=== PATIENT | male | born 1970 | race Caucasian/White ===

== ENCOUNTER 2019-09-05 19:41 | Emergency (ER) | payer SELFPAY ==
[2019-09-05 20:08] LABS: BILIRUBIN,URINE NEGATIVE (NEGATIVE); GLUCOSE, URINE (UA) NEGATIVE (NEGATIVE); KETONES,URINE (UA) NEGATIVE (NEGATIVE); LEUKOCYTE ESTERASE, URINE NEGATIVE (NEGATIVE); NITRITE,URINE NEGATIVE (NEGATIVE); OCCULT BLOOD,URINE NEGATIVE (NEGATIVE); PH,URINE 8.5 PH (5.0-7.5); PROTEIN,URINE NEGATIVE (NEGATIVE); UROBILINOGEN,URINE 0.2 (NORMAL) E.U./dL (NORMAL)
[2019-09-05 20:17] LABS: CLARITY,URINE CLEAR (CLEAR)
[2019-09-05] MEDS ORDERED: SODIUM CHLORIDE 0.9% 1,000 ML IV ONE (20:25)
--- NOTE | 2019-09-05 20:31 | ED Physician Documentation ---
History of Present Illness - Stated complaint Stated Complaint: SOA,SORE THROAT,BODY ACHES - Chief complaint Chief Complaint: Abd Pain - History obtained from History obtained from: Patient - Additonal information Additional information: Patient comes emergency department complaining of a cough for the last 3 days. Patient states he feels mildly short of breath, also. Patient states he had a temperature of 103 at home, and took some TheraFlu. He does not have fever here. Patient denies body aches. He says he has a mild scratchy throat. No headache. No shaking chills. Patient denies nausea or vomiting. No diarrhea. No abdominal or chest pain. He states he was a smoker until about 10 years ago. He is not known to have COPD, and does not have asthma. He states one other person at home is sick with similar symptoms. He has not had any known exposure to influenza or coronavirus. No other complaints at this time. He states his cough is dry. Review of Systems Ten Systems: 10 systems reviewed and negative Constitutional: reports: Fever. denies: Chills, Myalgias, Fatigue Eyes: reports: Reviewed and negative Ears: reports: Reviewed and negative Nose: reports: Congestion Throat: reports: Sore throat (Scratchy only) Cardiac: reports: Reviewed and negative Respiratory: reports: Cough (Dry) GI: reports: Reviewed and negative : reports: Reviewed and negative Skin: reports: Reviewed and negative Musculoskeletal: reports: Reviewed and negative Neurologic: reports: Reviewed and negative Psychiatric: reports: Reviewed and negative Endocrine: reports: Reviewed and negative Immunocompromised: reports: Reviewed and negative PD PAST MEDICAL HISTORY - Past Medical History Past Medical History: No - Present Medications Home Medications: Ambulatory Orders Medication Instructions Recorded Confirmed No Known Home Medications 09/05/19 09/05/19 - Allergies Allergies/Adverse Reactions: Allergies Allergy/AdvReac Type Severity Reaction Status Date / Time Penicillins Allergy Unknown Verified 09/05/19 20:00 - Social History Does the pt smoke?: No Smoking Status: Never smoker Does the pt drink ETOH?: No Does the pt have substance abuse?: Yes Substance Use and Type: Marijuana - Immunizations Immunizations are current?: No PD ED PE NORMAL - Vitals Vital signs reviewed: Yes - General General: Alert and oriented X 3, No acute distress - HEENT HEENT: Atraumatic, PERRL, EOMI, Moist mucous membranes, Pharynx benign - Neck Neck: Supple, no meningeal sign - Cardiac Cardiac: No murmur, Other (Rate and rhythm are regular, but patient is tachycardic.) - Respiratory Respiratory: No respiratory distress, Clear bilaterally - Abdomen Abdomen: Soft, Non tender, Non distended - Derm Derm: Normal color, Warm and dry, No rash - Extremities Extremities: No deformity, Normal ROM s pain, No edema, No calf tenderness / cord - Neuro Neuro: Alert and oriented X 3, 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, No motor deficit, No sensory deficit, Normal speech, Other (Grossly intact) - Psych Psych: Normal mood, Normal affect Results - Vitals Vitals: Vital Signs - 24 hr 09/05/19 09/05/19 19:45 22:24 Temperature 37.8 C H 38.9 C H Heart Rate 110 H 118 H Respiratory 18 20 Rate Blood Pressure 122/90 H 104/74 O2 Saturation 98 96 Oxygen O2 Source Room air - Labs Labs: Laboratory Tests 09/05/19 09/05/19 19:20 21:15 Urine Color YELLOW Urine Clarity CLEAR Urine pH 8.5 H Ur Specific Anderson 1.020 Urine Protein NEGATIVE Urine Glucose (UA) NEGATIVE Urine Ketones NEGATIVE Urine Occult Blood NEGATIVE Urine Nitrite NEGATIVE Urine Bilirubin NEGATIVE Urine Urobilinogen 0.2 (NORMAL) Ur Leukocyte Esterase NEGATIVE Ur Microscopic Review NOT INDICATED Urine Culture Comments NOT INDICATED Influenza A (Rapid) POSITIVE H Influenza B (Rapid) Negative - Rads (name of study) chest x-ray Radiology: Final report received, EMP read indepedently, See rad report (mild atelectasis, otherwise negative) PD MEDICAL DECISION MAKING - ED course Complexity details: reviewed results, re-evaluated patient, considered differential, d/w patient ED course: Patient was worked up initially with influenza testing and chest x-ray. He was given a liter of 0.9 normal saline, After which he was found to be feeling somewhat better. Influenza test was positive for influenza A. Chest x-ray was negative. I discussed the results with the patient. We have discussed home management and symptoms, the expected course of illness, and the usual indications for return. Departure - Departure Disposition: 01 Home, Self Care Clinical Impression: Influenza Condition: Fair Instructions: ED Flu Comments: Your influenza test was positive for influenza A tonight. You will most likely have fever, cough, chills, headache, and sore throat for 1 to 2 weeks.Usually after the first week, the symptoms start to improve.You may return to work when you are feeling better and you have been fever free for at least 24 hours. In the meantime, you may take ibuprofen and Tylenol as needed for fevers and aches, and be sure to drink plenty of fluids. Discharge Date/Time: 09/05/19 22:29
--- NOTE | 2019-09-05 21:22 | XRAY Report ---
Reason: cough Procedure Date: 09/05/2019 Accession Number: [id number] / [id number] Procedure: XR - Chest 2 View X-Ray CPT Code: 23410 Final Report FULL RESULT: EXAM: CHEST RADIOGRAPHY EXAM DATE: 09/05/2019 09:07 PM. CLINICAL HISTORY: Cough. Shortness of breath. Fever for 3 days. COMPARISON: None. TECHNIQUE: 2 views. FINDINGS: Lungs/Pleura: Minimal left hemidiaphragm elevation. Mild linear opacity suggesting atelectasis at the posterior left lung base. Otherwise clear. No focal consolidation. No peribronchial cuffing or interstitial abnormality. No pneumothorax or pleural fluid. Mediastinum: Heart and mediastinal contours are unremarkable. Other: None. IMPRESSION: Lungs clear except for minimal linear atelectasis at the posterior left lung base. RADIA
[2019-09-05 22:24] VITALS: BP 104/74
== END 2019-09-05 22:29 | disposition home or self-care (01) ==
LOC: ED 19:41
DX: J10.1 Influenza due to other identified influenza virus with other respiratory manifestations (principal)
CPT/HCPCS: 71046; 81001; 81003; 87086; 87275; 87276; 99284

== ENCOUNTER 2023-02-06 11:01 | Outpatient (CLI) | payer OTHER ==
--- NOTE | 2023-02-06 11:41 | XRAY Report ---
PROCEDURE: Shoulder 3 View RT INDICATIONS: RIGHT CUFF STRAIN TECHNIQUE: 3 views of the shoulder were acquired. COMPARISON: None. FINDINGS: Bones: No fractures or dislocations. No suspicious bony lesions. Visualized ribs appear intact. Soft tissues: No suspicious soft tissue calcifications. IMPRESSION: No significant radiographic abnormality. If pain continues consider MRI. Reviewed by: Sky Watkins on 02/06/2023 11:39 AM PDT Approved by: Sky Watkins on 02/06/2023 11:39 AM PDT Station ID: [id number]
== END 2023-02-06 23:59 | disposition home or self-care (01) ==
LOC: DI.S 11:01
PROVIDERS: ATTEND Physician Assistant
DX: S46.011A Strain of muscle(s) and tendon(s) of the rotator cuff of right shoulder, initial encounter (principal); Y99.0 Civilian activity done for income or pay

== ENCOUNTER 2023-03-31 08:00 | Outpatient (CLI) | payer OTHER ==
--- NOTE | 2023-03-31 17:27 | XRAY Report ---
PROCEDURE: Shoulder 1 View RT INDICATIONS: RIGHT SHOULDER PAIN TECHNIQUE: 1 views of the shoulder were acquired. COMPARISON: 02/06/2023 FINDINGS: Bones: No fractures or dislocations. No suspicious bony lesions. Soft tissues: No suspicious soft tissue calcifications. IMPRESSION: No acute bony abnormality identified on this single view exam. Reviewed by: Mitch Schultz MD on 03/31/2023 5:26 PM PDT Approved by: Mitch Schultz MD on 03/31/2023 5:26 PM PDT Station ID: [id number]
== END 2023-03-31 23:59 | disposition home or self-care (01) ==
LOC: DI.WOS 08:00
PROVIDERS: ATTEND Physician Assistant Surgical
DX: M25.511 Pain in right shoulder (principal)

== ENCOUNTER 2023-04-15 08:00 | Outpatient (CLI) | payer SELFPAY | END 2023-04-15 23:59 | disposition home or self-care (01) | LOC: LAB 08:00 | PROVIDERS: ATTEND Physician Assistant | DX: L02.212 Cutaneous abscess of back [any part, except buttock and flank] (principal) | CPT/HCPCS: 87070; 87205 ==

== ENCOUNTER 2023-11-19 23:03 | Emergency (ER) | payer SELFPAY ==
[2023-11-19] MEDS: KETOROLAC 30 MG/ML VIAL IVP STA (23:46)
[2023-11-19] MEDS: ONDANSETRON 4 MG/2 ML VIAL IVP STA (23:46)
[2023-11-19] MEDS: SODIUM CHLORIDE 0.9% 1,000 ML IV STA (23:46)
[2023-11-19 23:53] LABS: BASOPHILS % (AUTO) 0.3 %; EOSINOPHILS # (AUTO) 0.1 10^3/uL (0.0-0.7); EOSINOPHILS % (AUTO) 0.8 %; HCT - HEMATOCRIT 46.9 % (42.0-52.0); HGB - HEMOGLOBIN 15.4 g/dL (14.0-18.0); LYMPHOCYTES # (AUTO) 0.8 10^3/uL (1.5-3.5); LYMPHOCYTES % (AUTO) 7.1 %; MEAN CORPUSCULAR HEMOGLOBIN 28.2 pg (27.0-31.0); MEAN CORPUSCULAR HGB CONC 32.8 g/dL (32.0-36.0); MEAN CORPUSCULAR VOLUME 85.9 fL (80.0-94.0); MEAN PLATELET VOLUME 8.7 fL (7.4-11.4); MONOCYTES # (AUTO) 0.6 10^3/uL (0.0-1.0); MONOCYTES % (AUTO) 4.9 %; NEUTROPHILS # (AUTO) 9.9 10^3/uL (1.5-6.6); NEUTROPHILS % (AUTO) 86.6 %; PLT - PLATELET COUNT 243 10^3/uL (130-450); RED BLOOD COUNT 5.46 10^6/uL (4.70-6.10); WHITE BLOOD COUNT 11.5 x10^3/uL (4.8-10.8)
[2023-11-20 00:13] LABS: ALBUMIN 4.5 g/dL (3.2-5.5); BILIRUBIN,TOTAL 2.3 mg/dL (0.2-1.0); CALCIUM 9.4 mg/dL (8.5-10.3); CREATININE 0.8 mg/dL (0.6-1.3); POTASSIUM 3.4 mmol/L (3.5-4.5); TOTAL PROTEIN 6.8 g/dL (6.4-8.9)
[2023-11-20 00:14] LABS: TROPONIN I HIGH SENSITIVITY 5.2 ng/L (2.3-19.7)
[2023-11-20] MEDS: HYDROmorphone 1 MG/ML CARPUJECT IVP STA (00:22)
--- NOTE | 2023-11-20 00:32 | Ultrasound Report ---
PROCEDURE: Abdomen Limited INDICATIONS: RUQ pain TECHNIQUE: Real-time focused scanning was performed of the abdomen, with image documentation. COMPARISONS: None. FINDINGS: Liver: Liver is normal in size. Coarsely echogenic liver parenchymal echotexture is seen. No discret e solid appearing hepatic lesion.. Gallbladder: Gallbladder is distended. No gallstones or gallbladder wall thickening. No pericholecyst ic fluid or sonographic Jaimes's sign. Biliary ducts: Intrahepatic bile ducts are non-dilated. Extrahepatic bile duct caliber measures up to 12.8 mm in diameter. No gross choledocholithiasis is seen. Pancreas: Not well visualized due to overlying bowel gas. Right kidney: Normal in size and echotexture. Right kidney measures 11.7, 11.7 cm long. No hydroneph rosis or nephrolithiasis. Simple right renal cyst measures 3 x 2.3 cm in size is seen. No solid mass es. No complex renal cystic lesions which require follow-up. IVC: Intrahepatic inferior vena cava is patent. Miscellaneous: No free abdominal fluid. IMPRESSION: 1. Limited evaluation due to overlying bowel gas and patient discomfort. 2. Distended gallbladder. No sonographic evidence of acute cholecystitis or cholelithiasis. 3. Common bile duct dilatation measures up to 12.8 mm in diameter. No gross choledocholithiasis. No i ntrahepatic biliary ductal dilatation. 4. Hepatic steatosis. No discrete hepatic lesion. Reviewed by: Perico Flood MD on 11/20/2023 12:31 AM PDT Approved by: Perico Flood MD on 11/20/2023 12:31 AM PDT Station ID: [id number]
--- NOTE | 2023-11-20 00:35 | ED Physician Documentation ---
PD HPI ABD PAIN - Stated complaint Stated Complaint: ABD PX - Chief complaint Chief Complaint: Abd Pain - History obtained from History obtained from: Patient - Additional information Additional information: Patient is a 53-year-old male presenting for evaluation of Epigastric andright upper quadrant abdominal pain worsening since 1 PM. Patient reports associated nausea. He did have dinner this evening of fish sticks. Reports having a similar episode in mid August and was seen as [place] and was told he has gallstones but no signs of cholecystitis.Denies alcohol or drug use. No diarrhea. No fever or chest pain. Review of Systems Constitutional: denies: Fever Cardiac: denies: Chest pain / pressure Respiratory: denies: Dyspnea GI: reports: Abdominal Pain, Nausea : denies: Dysuria PD PAST MEDICAL HISTORY - Present Medications Home Medications: Ambulatory Orders Medication Instructions Recorded Confirmed No Known Home Medications 09/05/19 11/19/23 - Allergies Allergies/Adverse Reactions: Allergies Allergy/AdvReac Type Severity Reaction Status Date / Time Penicillins Allergy Unknown Verified 11/19/23 23:15 - Social History Does the pt smoke?: No Smoking Status: Never smoker Does the pt drink ETOH?: No Does the pt have substance abuse?: Yes - Immunizations Immunizations are current?: No PD ED PE NORMAL - General General: Alert and oriented X 3, No acute distress, Well developed/nourished - HEENT HEENT: Atraumatic - Neck Neck: Supple, no meningeal sign - Cardiac Cardiac: RRR, Strong equal pulses - Respiratory Respiratory: No respiratory distress, Clear bilaterally - Abdomen Abdomen: Normal bowel sounds, Soft, Non distended, Other (Right upper quadrant tenderness) - Derm Derm: Warm and dry - Neuro Neuro: Normal speech Results - Vitals Vitals: Vital Signs - 24 hr 11/19/23 11/19/23 11/20/23 23:09 23:31 00:01 Temperature 36.5 C Heart Rate 72 75 102 H Respiratory 24 22 14 Rate Blood Pressure 147/92 H 153/82 H 153/85 H O2 Saturation 98 99 95 If not protocol 2 : Oxygen Flow, liters/minute 11/20/23 11/20/23 11/20/23 00:17 01:00 02:23 Temperature Heart Rate 82 90 100 Respiratory 20 14 14 Rate Blood Pressure 132/100 H 124/77 147/93 H O2 Saturation 96 97 93 If not protocol 2 2 : Oxygen Flow, liters/minute Oxygen O2 Source Nasal cannula - EKG (time done) 2339 EKG releavant findings:: EKG personally interpreted by author of this note. Relevant findings are: Rate 80, normal sinus rhythm, no STEMI - Labs Labs: Laboratory Tests 11/19/23 11/19/23 11/20/23 23:49 23:49 00:36 WBC 11.5 H RBC 5.46 Hgb 15.4 Hct 46.9 MCV 85.9 MCH 28.2 MCHC 32.8 RDW 14.0 Plt Count 243 MPV 8.7 Neut # (Auto) 9.9 H Lymph # (Auto) 0.8 L [place] # (Auto) 0.6 Eos # (Auto) 0.1 Baso # (Auto) 0.0 Absolute Nucleated RBC 0.00 Nucleated RBC % 0.0 Sodium 138 Potassium 3.4 L Chloride 99 L Carbon Dioxide 28 Anion Gap 11.0 BUN 17 Creatinine 0.8 Estimated GFR (MDRD) 101 Glucose 130 H Calcium 9.4 Total Bilirubin 2.3 H AST 156 H ALT 158 H Alkaline Phosphatase 327 H Troponin I High Sens 5.2 Total Protein 6.8 Albumin 4.5 Globulin 2.3 Albumin/Globulin Ratio 2.0 Lipase 10 L SARS-CoV-2 (PCR) NOT DETECTED PD Medical Decision Making - ED course Complexity details: reviewed results, re-evaluated patient, d/w patient ED course: Patient is a 53-year-old male presenting for evaluation of upper abdominal pain. Has right upper quadrant tenderness. CBC, chemistry were obtained and reviewed . Labs are significant for elevations of AST and ALT, T. bili of 2.3, alk phos. Minimally elevated white count of 11,000. Ultrasound was obtained which demonstrates dilation of the common bile duct to 13 mm. Patient does have a history of gallstones although no gallstones were seen tonight. I do have concerns for biliary obstruction given pain as well as ultrasound findings. Patient did require IV morphine and Dilaudid for pain control along with nausea. EKG is reviewed and nonischemic and high-sensitivity troponin is negative therefore do not feel that there is a cardiac component. Given ongoing pain I have concerns that there is ongoing obstruction and patient may need an ERCP. Discussed with admitting hospitalist at [facility] who agrees to accept the patient for transfer. 013 - D/W Hospitalist, Dr. Olsen - Accepts pt in transfer. Departure - Departure Disposition: 02 Transfer Acute Care Hosp Clinical Impression: Biliary obstruction Condition: Stable Forms: PCP List Discharge Date/Time: 11/20/23 03:16
[2023-11-20] MEDS: POTASSIUM CHLOR 10 MEQ/100 ML 10 MEQ/100 ML BAG IV SCH (01:46)
[2023-11-20 02:34] VITALS: BP 147/93; O2SAT 93
[2023-11-20] MEDS: ONDANSETRON 4 MG/2 ML VIAL IVP STA (03:04)
== END 2023-11-20 03:16 | disposition short-term general hospital (02) ==
LOC: ED 23:03
DX: K83.1 Obstruction of bile duct (principal)
CPT/HCPCS: 36415; 76705; 80053; 83690; 84484; 85025; 87635; 93005; 96374; 96375; 99285; J1170